=== PATIENT | male | born 2000 | race Two or more races ===

== ENCOUNTER 2024-08-24 11:34 | Emergency (ER) | payer SELFPAY ==
[2024-08-24] MEDS: Rabies Immune Globulin/PF (HyperRAB) 300 UNIT/ML 5 ML SDV IM ONE (12:23)
[2024-08-24] MEDS: Rabies Vaccine (Avian) 2.5 Unit Inj Kit IM ONE (12:25)
[2024-08-24] MEDS: Diphtheria,Pertussis(Acell),Tetanus Vaccine 0.5 ML Syringe IM ONE (12:26)
[2024-08-24] MEDS: Acetaminophen 500 MG Tab PO ONE (12:39)
[2024-08-24] MEDS: Ibuprofen 600 MG Tab PO ONE (12:39)
== END 2024-08-24 13:11 | disposition home or self-care (01) ==
LOC: MW.ED 11:34
DX: S81.851A Open bite, right lower leg, initial encounter (principal); S81.832A Puncture wound without foreign body, left lower leg, initial encounter; Z23 Encounter for immunization; Z79.899 Other long term (current) drug therapy; W54.0XXA Bitten by dog, initial encounter
CPT/HCPCS: 90375; 90471; 90675; 90715; 96372; 99283-25

== ENCOUNTER 2024-08-31 14:16 | Emergency (ER) | payer SELFPAY | END 2024-08-31 14:54 | disposition left against medical advice (07) | LOC: MW.ED 14:16 | DX: Z53.21 Procedure and treatment not carried out due to patient leaving prior to being seen by health care provider (principal) | CPT/HCPCS: 90471; 99281 ==